=== PATIENT | male | born 1935 | race Caucasian/White ===

== ENCOUNTER 2020-05-05 10:42 | Outpatient (RCR) | payer MEDICARE, OTHER, SELFPAY | END 2020-05-05 23:59 | LOC: IMMUN 10:42 | PROVIDERS: PCP Internal Medicine; Referring Provider Family Medicine; Visit Provider Family Medicine | DX: Z23 Encounter for immunization (principal) | CPT/HCPCS: 0011A; 0012A ==

== ENCOUNTER → 2021-10-29 | Outpatient (CLI) | payer MEDICARE, OTHER, SELFPAY ==
[2021-10-29 14:02] LABS: ALB/GLOB Ratio 0.8 RATIO (0.9-2.4); AST(SGOT) 18 U/L (15-37); Alanine Aminotransfer ALT/SGPT 26 U/L (16-61); Albumin, Serum 3.4 g/dL (3.2-5.0); Alkaline Phosphatase 65 U/L (45-117); Anion Gap 6 (5-15); BUN 22 mg/dL (7-18); BUN/Creat Ratio 22.1 RATIO (10-20); Calcium,Total 9.2 mg/dL (8.5-10.1); Chloride 101 mmol/L (98-107); Creatinine, Serum 0.99 mg/dL (0.70-1.30); EST Glomerular Filtration Rate 76 mL/min (>60); Est Glom Filt Rate - Afr Amer 92 mL/min (>60); Glucose 153 mg/dL (74-106); Potassium 4.4 mmol/L (3.5-5.1); Protein, Total 7.4 g/dL (6.4-8.2); Sodium Level 136 mmol/L (136-145)
[2021-10-29 14:20] LABS: Erythrocyte Sedimentation Rate 17 mm/hr (0-20)
[2021-10-29 14:22] LABS: Absolute Lymphocyte Count 1.78 X10^3/uL (0.83-4.51); Absolute Neutrophil Count 7.3 X10^3/uL (2.0-7.7); Basophil# 0.06 X10^3/uL; Basophil% 0.6 % (0-1); Eosinophil# 0.35 X10^3/uL; Eosinophils% 3.4 % (0-5); Hematocrit 40.3 % (40-54); Hemoglobin 13.7 g/dL (13.0-16.5); Lymphocyte # 1.78 X10^3/ul (0.83-4.51); Lymphocyte % 17.1 % (19-41); Mean Corpuscular Hgb 31.4 pg (27.0-32.0); Mean Corpuscular Volume 92.4 fL (80-94); Monocyte# 0.91 X10^3/uL; Monocyte% 8.8 % (0-10); NRBC Flagged by Analyzer 0 % (0-5); Neutrophil # 7.26 X10^3/uL (2.7-7.7); Neutrophil % 69.7 % (47-70); Platelet Count 213 K/mm3 (150-450); RBC Distribution Width CV 13.3 % (11.6-14.6); RBC Distribution Width SD 45.4 fl (35.1-43.9); Red Blood Count 4.36 M/mm3 (4.6-6.2); White Blood Count 10.4 K/mm3 (4.4-11.0)
[2021-10-29 19:33] LABS: M R Staph aureus DNA By PCR Negative (Negative); Probe Check PASS; Specimen Processing Control PASS; Staph aureus DNA By PCR POSITIVE (Negative)
== END | disposition home or self-care (01) ==
PROVIDERS: PCP Internal Medicine; Referring Provider Podiatrist; Visit Provider Podiatrist
DX: L03.90 Cellulitis, unspecified (principal)
CPT/HCPCS: 36415; 80053; 85025; 85652; 86140; 87070; 87077; 87186; 87205; 87640

== ENCOUNTER 2023-06-07 17:32 | Inpatient (IN) | payer MEDICARE, OTHER, SELFPAY ==
[2023-06-07 17:33] VITALS: BP 157/91; PULSE 87; RESP 16; TEMP 36.6; O2SAT 99; BMI 30.1
--- NOTE | 2023-06-07 17:49 | EX.ED.DYSGE1 ---
HPI <LORRIE Marie - Last Filed: 06/07/23 19:02> History of Present Illness Chief Complaint: Wound Check Narrative Narrative: Patient was using a metal wire brush to clean test and impedance in his garage and was wearing socks and states a metal wire stuck to the bottom of his foot. This occurred on 06/04/2023. He had a friend remove the wire. Last night he developed redness and swelling of the foot that has persisted today. He states it is not worsening and it is not painful. No fever or chills. He is type II diabetic and did not check his sugars today. <Dr. Mo Gamboa MD - Last Filed: 06/07/23 23:22> History of Present Illness Detail of Chief Complaint: Right foot infection PFSH <LORRIE Marie - Last Filed: 06/07/23 19:02> [facility] Home Medications aspirin 81 mg tablet,delayed release (Adult Aspirin Regimen) 81 mg PO DAILY 06/07/23 [History Last Taken 06/07/23] clopidogrel 75 mg tablet 75 mg PO DAILY 06/07/23 [History Last Taken 06/07/23] latanoprost 0.005 % eye drops 1 drp ophthalmic (eye) QHS 06/07/23 [History Last Taken 06/06/23] lisinopril 10 mg tablet 10 mg PO DAILY 06/07/23 [History Last Taken 06/07/23] metformin 1,000 mg tablet 1,000 mg PO BID 06/07/23 [History Last Taken 06/07/23] metoprolol succinate 50 mg tablet,extended release 24 hr 50 mg PO DAILY 06/07/23 [History Last Taken 06/06/23] rosuvastatin 20 mg tablet 20 mg PO DAILY 06/07/23 [History Last Taken 06/06/23] Allergy/AdvReac Type Severity Reaction Status Date / Time metronidazole [From Flagyl] Allergy Rash Verified 06/07/23 18:46 Social History Smoking Status: Never smoker ROS <LORRIE Marie - Last Filed: 06/07/23 19:02> ROS ED ROS Narrative Constitutional: Negative for fever, chills. Neuro: Negative for motor/sensory dysfunction. Skin: Positive for wound. Musc: Negative for joint pain. EXAM <LORRIE Marie - Last Filed: 06/07/23 19:02> Physical Exam Narrative Exam Narrative: CONST: Patient sitting in no acute distress. EYES: Normal inspection. NECK: Normal inspection. RESP: No respiratory distress, CTAB. CVS: Regular rate and rhythm, no murmur, no gallop. SKIN: Color normal, no rash, warm, dry, intact. EXTREMITIES: On the plantar surface of first metatarsal area where the foreign body was previously there is a pinpoint and surrounding callus with small amount of pus expressed with palpation. The medial aspect of the dorsal foot has edema and erythema extending up just past the ankle. No lymphangitic streaking. Full ROM of the ankle and foot, nontender, no crepitus or fluctuance, 2+ DP pulses NEURO: Oriented x4. PSYCH: Normal affect. Const Vital Signs: 06/07/23 17:33 06/07/23 18:10 Temperature 97.8 F Temperature Source Temporal Pulse Rate 87 98 Respiratory Rate 16 18 Blood Pressure 157/91 H 116/96 H Blood Pressure Mean 113 102 Pulse Ox 99 96 Oxygen Delivery Method Room Air <Dr. Mo Gamboa MD - Last Filed: 06/07/23 23:22> Physical Exam Const Vital Signs: 06/07/23 17:33 06/07/23 18:10 Temperature 97.8 F Temperature Source Temporal Pulse Rate 87 98 Respiratory Rate 16 18 Blood Pressure 157/91 H 116/96 H Blood Pressure Mean 113 102 Pulse Ox 99 96 Oxygen Delivery Method Room Air MDM <LORRIE Marie - Last Filed: 06/07/23 19:02> [facility] Narrative Medical decision making narrative: Differential: Cellulitis, abscess, foreign body Patient was using a metal brush 3 days ago stepped on a piece of wire that he removed. He developed redness and swelling right foot last night. He has evidence of cellulitis and a small abscess for the foreign body had entered his skin. Wound culture sent. Extremity is neurovascularly intact. X-ray shows 2 metallic foreign bodies in the plantar foot between the 1st and 2nd digit and 4th and 5th digits. The acute entrance wound from recent injury is between the 1st and 2nd metatarsal heads. Patient reports he has a remote foreign body in his foot which explains the foreign body between the fourth/fifth digits. The attending successfully remove the wire between the 1st/2nd digits. Labs show normal white count of 9.6, glucose 174. Patient was treated with IV vancomycin and Zosyn. Case was discussed with Dr. Polanco, podiatry, who will be on consult as needed. Case will be discussed with the hospitalist for admission. Consults: Podiatry, hospitalist I have personally performed a face to face assessment of the patient and have reviewed the ELINOR Note. I performed a substantive portion of the visit including all aspects of the following. My moore findings include: History is remarkable for infection with drainage from the plantar surface of the right foot. He was using a metal brush 3 days ago. He believes he stepped on a piece of wire that he removed. He presents now because of redness, swelling and thick whitish-brown drainage. He denies fever or chills. Eyes atraumatic fever, heart murmur mitral valve prolapse. He is not on an anticoagulant. He denies nausea or vomiting. He denies pain in his foot. He states he does have diabetic neuropathy. He denies red streak from his foot to his knee. He denies groin or posterior knee pain. Exam is remarkable for a foot infection. Patient has a small puncture wound with purulent material that was expressed from the wound. Will obtain wound culture. There is edema to the foot. There is erythema and warmth. There is no lymphangitis. There is no popliteal or inguinal lymphadenopathy. Heart is regular. Rate is normal. There is no murmur, gallop or rub. Lungs are clear to auscultation. Medical Decision Making patient has a diabetic foot infection. Will obtain x-ray to assess for foreign body. Call was placed Dr. Polanco who is taking a patient to the OR. He is in the OR. Plan at this point is to remove the foreign body where the purulent drainage is. Since there is no wound associated with the second foreign body that is in the proximity of the first metatarsal head suspect this may not be the culprit causing the infection and may be a chronic retained foreign body. Antibiotics were started for diabetic foot infection per the sepsis treatment order set. Other additions or changes: [None] Lab Data Labs: Laboratory Results - last 24 hr 06/07/23 06/07/23 17:42 18:00 WBC 9.6 RBC 4.24 L Hgb 13.0 Hct 38.7 L MCV 91.3 MCH 30.7 MCHC 33.6 RDW Std Deviation 46.3 H RDW Coeff of Gm 13.7 Plt Count 175 MPV 9.9 Immature Gran % (Auto) 0.300 Neut % (Auto) 58.3 Lymph % (Auto) 26.3 [place] % (Auto) 9.1 Eos % (Auto) 5.4 H Baso % (Auto) 0.6 Absolute Neuts (auto) 5.6 Absolute Lymphs (auto) 2.53 Nucleated RBC % 0 Sodium 138 Potassium 3.8 Chloride 105 Carbon Dioxide 27.0 Anion Gap 6 BUN 20 H Creatinine 0.88 Estim Creat Clear Calc 61.46 Est GFR (MDRD) Af Amer 105 Est GFR (MDRD) Non-Af 87 BUN/Creatinine Ratio 22.7 H Glucose 174 H Hemoglobin A1c 7.6 H Calcium 8.9 POC Glucose 173 H Radiography Diagnostic Testing: Clinical Impression(s) from Imaging Studies Foot X-Ray 06/07/23 17:50 IMPRESSION: 1. There are at least 2 curvilinear metallic foreign bodies in the plantar aspect of the foot localized to the interspace between the fourth and fifth digits as well as at the plantar aspect near the first and second metatarsal heads. 2. Mild diffuse soft tissue swelling. 3. Degenerative changes. Electronically Signed: Anand Marquis DO at 18:11 EDT , <Dr. Mo Gamboa MD - Last Filed: 06/07/23 23:22> [facility] Narrative Medical decision making narrative: Differential: Cellulitis, abscess, foreign body Patient was using a metal brush 3 days ago stepped on a piece of wire that he removed. He developed redness and swelling right foot last night. He has evidence of cellulitis and a small abscess for the foreign body had entered his skin. Wound culture sent. Extremity is neurovascularly intact. X-ray shows 2 metallic foreign bodies in the plantar foot between the 1st and 2nd digit and 4th and 5th digits. The acute entrance wound from recent injury is between the 1st and 2nd metatarsal heads. Patient reports he has a remote foreign body in his foot which explains the foreign body between the fourth/fifth digits. The attending successfully remove the wire between the 1st/2nd digits. Labs show normal white count of 9.6, glucose 174. Patient was treated with IV vancomycin and Zosyn. Case was discussed with Dr. Polanco, podiatry, who will be on consult as needed. Case will be discussed with the hospitalist for admission. Consults: Podiatry, hospitalist I have personally performed a face to face assessment of the patient and have reviewed the ELINOR Note. I performed a substantive portion of the visit including all aspects of the following. My moore findings include: History is remarkable for infection with drainage from the plantar surface of the right foot. He was using a metal brush 3 days ago. He believes he stepped on a piece of wire that he removed. He presents now because of redness, swelling and thick whitish-brown drainage. He denies fever or chills. Eyes atraumatic fever, heart murmur mitral valve prolapse. He is not on an anticoagulant. He denies nausea or vomiting. He denies pain in his foot. He states he does have diabetic neuropathy. He denies red streak from his foot to his knee. He denies groin or posterior knee pain. Exam is remarkable for a foot infection. Patient has a small puncture wound with purulent material that was expressed from the wound. Will obtain wound culture. There is edema to the foot. There is erythema and warmth. There is no lymphangitis. There is no popliteal or inguinal lymphadenopathy. Heart is regular. Rate is normal. There is no murmur, gallop or rub. Lungs are clear to auscultation. Medical Decision Making patient has a diabetic foot infection. Will obtain x-ray to assess for foreign body. Call was placed Dr. Polanco who is taking a patient to the OR. He is in the OR. Plan at this point is to remove the foreign body where the purulent drainage is. Since there is no wound associated with the second foreign body that is in the proximity of the first metatarsal head suspect this may not be the culprit causing the infection and may be a chronic retained foreign body. Antibiotics were started for diabetic foot infection per the sepsis treatment order set. Other additions or changes: Dr. Polanco was informed at 2315 that the foreign body was removed. He states he will see patient at this time. Lab Data Attestation: I reviewed the patient's lab results. Lab results narrative: White count is 9.6 with no shift. Glucose is elevated 173. Labs: Laboratory Results - last 24 hr 06/07/23 06/07/23 17:42 18:00 WBC 9.6 RBC 4.24 L Hgb 13.0 Hct 38.7 L MCV 91.3 MCH 30.7 MCHC 33.6 RDW Std Deviation 46.3 H RDW Coeff of Gm 13.7 Plt Count 175 MPV 9.9 Immature Gran % (Auto) 0.300 Neut % (Auto) 58.3 Lymph % (Auto) 26.3 [place] % (Auto) 9.1 Eos % (Auto) 5.4 H Baso % (Auto) 0.6 Absolute Neuts (auto) 5.6 Absolute Lymphs (auto) 2.53 Nucleated RBC % 0 Sodium 138 Potassium 3.8 Chloride 105 Carbon Dioxide 27.0 Anion Gap 6 BUN 20 H Creatinine 0.88 Estim Creat Clear Calc 61.46 Est GFR (MDRD) Af Amer 105 Est GFR (MDRD) Non-Af 87 BUN/Creatinine Ratio 22.7 H Glucose 174 H Hemoglobin A1c 7.6 H Calcium 8.9 POC Glucose 173 H Radiography Chest X-Ray - ED: Read by ED Physician (Three-view x-ray of the foot reveals 2 metallic foreign body. 1 is by the head of the first metatarsal the second 1 is in the region of the head of the third metatarsal. Suspect this is the wound associated with purulent drainage.) Diagnostic Testing: Clinical Impression(s) from Imaging Studies Foot X-Ray 06/07/23 17:50 IMPRESSION: 1. There are at least 2 curvilinear metallic foreign bodies in the plantar aspect of the foot localized to the interspace between the fourth and fifth digits as well as at the plantar aspect near the first and second metatarsal heads. 2. Mild diffuse soft tissue swelling. 3. Degenerative changes. Electronically Signed: Anand Marquis DO at 18:11 EDT , Procedures <Dr. Mo Gamboa MD - Last Filed: 06/07/23 23:22> Other Procedures Procedure(s): Removal of embedded foreign body: Patient was anesthetized by posterior tibial nerve block using 1% lidocaine. Total of 4 cc was used. Area was tested. He states he had no sensation. Incision was made near the area of purulent drainage. Blunt dissection was undertaken. The foreign body was visualized and removed in total. Prior to attempting removal Case was discussed with Dr. Polanco who is on-call for podiatry. Discharge Plan Dx/Rx/DC Orders Clinical Impression: Cellulitis of foot, right, History of diabetes mellitus, type II, Acute foreign body of right foot Disposition Disposition: Acute Care Hospital [facility] Discharge Date/Time: 06/07/23 19:11
--- NOTE | 2023-06-07 17:50 | RAD_ITS ---
EXAM: XR RIGHT FOOT COMPLETE, 3 OR MORE VIEWS CLINICAL INDICATION: rule out foreign body, pain TECHNIQUE: Frontal, lateral and oblique views of the right foot. COMPARISON: No relevant prior studies available. FINDINGS: BONES/JOINTS: Hallux valgus. 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 Diffuse interphalangeal joint arthrosis. Diffuse midfoot and hindfoot/ankle arthrosis. Calcaneal spurs. No acute fracture. No sclerotic or destructive changes observed. SOFT TISSUES: There are at least 2 curvilinear metallic foreign bodies in the plantar aspect of the foot localized to the interspace between the fourth and fifth digits as well as at the plantar aspect near the first and second metatarsal heads. Mild diffuse soft tissue swelling. RAD/Foot min 3 Views IMPRESSION: 1. There are at least 2 curvilinear metallic foreign bodies in the plantar aspect of the foot localized to the interspace between the fourth and fifth digits as well as at the plantar aspect near the first and second metatarsal heads. 2. Mild diffuse soft tissue swelling. 3. Degenerative changes. Electronically Signed: Anand Marquis DO at 18:11 EDT ,
[2023-06-07 18:02] LABS: Bedside Glucose 173 mg/dL (74-106)
[2023-06-07] MEDS: Lidocaine 1% (20 ml mdv) 20 ML Vial INFILT (18:02)
[2023-06-07 18:10] VITALS: BP 116/96; PULSE 98; RESP 18; O2SAT 96
[2023-06-07 18:15] LABS: Absolute Lymphocyte Count 2.53 X10^3/uL (0.83-4.51); Absolute Neutrophil Count 5.6 X10^3/uL (2.0-7.7); Basophil# 0.06 X10^3/uL; Basophil% 0.6 % (0-1); Eosinophil# 0.52 X10^3/uL; Eosinophils% 5.4 % (0-5); Hematocrit 38.7 % (40-54); Lymphocyte # 2.53 X10^3/ul (0.83-4.51); Lymphocyte % 26.3 % (19-41); Mean Corp Hgb Conc 33.6 g/dL (32-36); Mean Corpuscular Hgb 30.7 pg (27.0-32.0); Mean Corpuscular Volume 91.3 fL (80-94); Mean Platelet Vol. 9.9 fl (6.2-12.0); Monocyte# 0.88 X10^3/uL; Monocyte% 9.1 % (0-10); NRBC Flagged by Analyzer 0 % (0-5); Neutrophil % 58.3 % (47-70); Platelet Count 175 K/mm3 (150-450); RBC Distribution Width CV 13.7 % (11.6-14.6); RBC Distribution Width SD 46.3 fl (35.1-43.9); Red Blood Count 4.24 M/mm3 (4.6-6.2); White Blood Count 9.6 K/mm3 (4.4-11.0)
[2023-06-07 18:27] LABS: Anion Gap 6 (5-15); BUN 20 mg/dL (7-18); BUN/Creat Ratio 22.7 RATIO (10-20); Calcium,Total 8.9 mg/dL (8.5-10.1); Chloride 105 mmol/L (98-107); Creatinine, Serum 0.88 mg/dL (0.70-1.30); EST Glomerular Filtration Rate 87 mL/min (>60); Est Glom Filt Rate - Afr Amer 105 mL/min (>60); Estimated Creatinine Clearance 61.46 ml/min; Glucose 174 mg/dL (74-106); Potassium 3.8 mmol/L (3.5-5.1); Sodium Level 138 mmol/L (136-145)
[2023-06-07] MEDS: Piperacil/Tazobactam 4.5 GM in 0.9% Normal Saline (100mL MB+) 100 ML IV (18:38)
--- NOTE | 2023-06-07 18:43 | HP.PCM.HOS_ITS ---
[facility] - General General Date of Admission: 06/07/23 Date of Service: 06/07/23 Chief Complaint: Right leg cellulitis following foreign body injury HPI Stephanie BA, is a 88 M with past medical history of type 2 diabetes, coronary artery disease who presents to the ED for concerns of a metal wire stuck to his right foot since 06/04/2023. His friend had removed the wire, but since last night he has developed redness and swelling of the foot. There is minimal pain and he is able to move his ankle well. He has a history of coronary artery disease s/p PCI in 2001 and is on DAPT for the same, type 2 diabetes on metformin In the ED and x-ray showed 2 metallic foreign bodies in the plantar foot between the first and second digits, and fourth and fifth digits. The foreign body between the first and second metatarsal heads is the recent foreign body and it was removed in the ED. There is also an older foreign body lodged between the fourth and fifth digits. Podiatry was consulted in the ED, they will evaluate the patient tomorrow. COUNTS INCLUDE 234 BEDS AT THE [facility] Home Medications aspirin 81 mg tablet,delayed release (Adult Aspirin Regimen) 81 mg PO DAILY 06/07/23 [History Last Taken 06/07/23] clopidogrel 75 mg tablet 75 mg PO DAILY 06/07/23 [History Last Taken 06/07/23] latanoprost 0.005 % eye drops 1 drp ophthalmic (eye) QHS 06/07/23 [History Last Taken 06/06/23] lisinopril 10 mg tablet 10 mg PO DAILY 06/07/23 [History Last Taken 06/07/23] metformin 1,000 mg tablet 1,000 mg PO BID 06/07/23 [History Last Taken 06/07/23] metoprolol succinate 50 mg tablet,extended release 24 hr 50 mg PO DAILY 06/07/23 [History Last Taken 06/06/23] rosuvastatin 20 mg tablet 20 mg PO DAILY 06/07/23 [History Last Taken 06/06/23] Allergy/AdvReac Type Severity Reaction Status Date / Time metronidazole [From Flagyl] Allergy Rash Verified 06/07/23 18:46 Social History Smoking Status: Never smoker ROS Review of Systems ROS Unobtainable: Denies due to encephalopathy, due to endotracheal tube, due to mental condition, due to mental status or other Constitutional Constitutional: Denies anorexia, change in weight, chills, fatigue, fever(s), malaise, night sweats, weakness or other Eyes Eyes: Denies blurry vision, change in eye color, change in vision, discharge from eye(s), double vision, erythema, eye pain, loss of vision or other ENT HEENT: Reports abnormal hearing; Denies dysphagia, ear pain, epistaxis, headache(s), hearing loss, nasal congestion, nasal discharge, post nasal drip, sinus pressure, sore throat or other Cardiovascular Cardiovascular: Denies chest pain, claudication, dyspnea on exertion, edema, lightheadedness, orthopnea, palpitations, paroxysmal nocturnal dyspnea, rapid heart rate, syncope or other Respiratory/Chest Respiratory/Chest: Denies cough, dyspnea, excessive phlegm production, hemoptysis, productive cough, shortness of breath at rest, shortness of breath with exertion, wheezing or other Gastrointestinal Gastrointestinal: Denies abdominal pain, coffee ground emesis, constipation, diarrhea, dyspepsia, hematemesis, hematochezia, loose stools, melena, nausea, vomiting or other Genitourinary Genitourinary: Denies burning urination, difficulty urinating, dysuria, hematuria, nocturia, urinary frequency, urinary hesitancy, urinary incontinence, urinary urgency or other Musculoskeletal Musculoskeletal: Denies arthralgias, back pain, joint pain, joint stiffness, joint swelling, myalgias, neck pain or other Neurologic Neurologic: Denies abnormal gait, abnormal speech, confusion, disequilibrium, dizziness, focal weakness, headache(s), numbness, paresthesias, seizure-like activity, seizures, syncope, tingling, tremor(s) or other Vital Signs Vital Signs Vital Signs: 06/07/23 17:33 06/07/23 18:10 Temperature 97.8 F Temperature Source Temporal Pulse Rate 87 98 Respiratory Rate 16 18 Blood Pressure 157/91 H 116/96 H Blood Pressure Mean 113 102 Pulse Ox 99 96 Oxygen Delivery Method Room Air Weight Weight: 186 lb 8 oz Body Mass Index (BMI) 30.1 Physical Exam Neck No no lymphadenopathy, No supple, No no JVD and No no carotid bruits Resp No normal respiratory effort, No no retractions, No no use of accessory muscles and No clear to auscultation bilaterally Cardio Negative for regular rate, regular rhythm, S1 normal heart sound, S2 normal heart sound, no murmurs, no rub, no gallops, no clicks or no JVD GI Negative for normal to inspection, nondistended, normoactive bowel sounds, soft to palpation, non-tender, non-distended or hepatosplenomegaly Extremity Extremity Narrative: Right foot is swollen, erythematous. Mild oozing present at the prior entry wound. No tenderness over the wound, no foreign body could be felt on palpation. Able to move his ankles freely without any pain. Results Medical Records Data Attestation: I reviewed the patient's medical records Lab / Micro Data Attestation: I reviewed the patient's lab results. Lab results narrative: WBC is in normal range, BUN 20, glucose 174. 06/07/23 18:00 06/07/23 18:00 Labs: Laboratory Results - last 24 hr 06/07/23 17:42: POC Glucose 173 H 06/07/23 18:00: WBC 9.6, RBC 4.24 L, Hgb 13.0, Hct 38.7 L, MCV 91.3, MCH 30.7, MCHC 33.6, RDW Std Deviation 46.3 H, RDW Coeff of Gm 13.7, Plt Count 175, MPV 9.9, Immature Gran % (Auto) 0.300, Neut % (Auto) 58.3, Lymph % (Auto) 26.3, [place] % (Auto) 9.1, Eos % (Auto) 5.4 H, Baso % (Auto) 0.6, Absolute Neuts (auto) 5.6, Absolute Lymphs (auto) 2.53, Nucleated RBC % 0, Sodium 138, Potassium 3.8, Chloride 105, Carbon Dioxide 27.0, Anion Gap 6, BUN 20 H, Creatinine 0.88, Estim Creat Clear Calc 61.46, Est GFR (MDRD) Af Amer 105, Est GFR (MDRD) Non-Af 87, BUN/Creatinine Ratio 22.7 H, Glucose 174 H, Calcium 8.9 Imaging Radiology Impression Foot X-Ray 06/07/23 17:50 IMPRESSION: 1. There are at least 2 curvilinear metallic foreign bodies in the plantar aspect of the foot localized to the interspace between the fourth and fifth digits as well as at the plantar aspect near the first and second metatarsal heads. 2. Mild diffuse soft tissue swelling. 3. Degenerative changes. Electronically Signed: Anand Marquis DO at 18:11 EDT , Assessment & Plan Assessment/Plan (1) Acute foreign body of right foot: PLAN: Plan 88-year-old gentleman presents to the ED following acute foreign body related injury to his right foot followed by cellulitis. He has no other risk factors for worsening disease and his sugars are well-controlled. 1. Acute cellulitis of the right foot: -The foreign body was removed in the ED, podiatry consulted will see him tomorrow -Continue vancomycin plus Zosyn for today, if there is improvement can switch to oral antibiotics tomorrow -No pain at present, will use Tylenol if he is in pain overnight -LR IV 500 cc at the rate of 100 cc/h given the elevated BUN 2. Type 2 diabetes: -A1c levels -Insulin per sliding scale during hospitalization -Blood sugars in the ED were well-controlled 3. Coronary artery disease: -Continue DAPT therapy as on it previously -Consider following up with cardiology outpatient regarding the need for dual a ntiplatelet therapy given stent was 2 decades ago 4. Hypertension: -Continue lisinopril, metoprolol 5. Dyslipidemia: Continue rosuvastatin 6. DVT prophylaxis: Moderate risk given immobility -Enoxaparin prophylaxis ordered Charges/Coding Visit Charges Inpatient E&M: 41870 Init Hosp L2
[2023-06-07 18:49] VITALS: BP 116/78; PULSE 78; RESP 16; TEMP 36.4; O2SAT 99
[2023-06-07 19:22] VITALS: BMI 29.7
[2023-06-07 19:40] VITALS: BP 162/91; PULSE 65; RESP 18; TEMP 36.4; O2SAT 97
[2023-06-07] MEDS: 0.9% Saline Lock 10 ML Syringe IV (19:57)
[2023-06-07] MEDS: Vancomycin HCl 2,000 MG in 0.9% Normal Saline (500mL Bag) 500 ML 250 MG IV (19:57)
[2023-06-07] MEDS: 0.9% Normal Saline (250mL Bag) 250 ML 15 ML IV (19:57)
[2023-06-07 20:13] LABS: Hemoglobin A1c 7.6 % (3.8-5.6)
[2023-06-07] MEDS: Insulin Lispro 100 UNIT/ML INSULN.PEN SC (21:44)
[2023-06-07 21:45] VITALS: BP 162/91; PULSE 65
[2023-06-07] MEDS: Atorvastatin Calcium 40 MG Tablet PO (21:45)
[2023-06-07] MEDS: Metoprolol(XL)Succ 50 MG Tablet PO (21:45)
[2023-06-07] MEDS: Latanoprost 0.005% 1 Bottle 1 DRP OPHTHALMIC (21:45)
[2023-06-07 22:22] LABS: Bedside Glucose 228 mg/dL (74-106)
--- NOTE | 2023-06-08 00:06 | CON.PCM_ITS ---
Assessment & Plan Assessment/Plan (1) Acute foreign body of right foot: (2) Cellulitis of foot, right: (3) History of diabetes mellitus, type II: PLAN: Plan Patient seen and evaluated There is a small puncture wound at site of previous foreign body to the plantar aspect of the right foot just proximal to the first metatarsal head and sesamoid complex. There is erythema about the wound and medial foot extending proximally towards the ankle. However erythema has improved based on markings since starting IV antibiotics. He did undergo removal of foreign body in the ED followed by copious irrigation. Dry sterile dressings were applied to the foot. WBC currently 9.6. Currently on IV Vanco/Zosyn. There has been improvement in his cellulitis tonight. Likely to switch to oral antibiotic tomorrow afternoon. A1c 7.6% on 06/07/2023 Discussed with patient the importance of wearing shoe gear at all times. Discussed he should not walk barefoot, this includes socks. Stated that shoe gear should be worn at all times for reasons such as this and given his diabetic status infections can get worse and may lead to amputation. He voices understanding of this however will likely continue to ambulate barefoot. Medicine currently following for medical management No podiatric surgical intervention is anticipated at this time Podiatry will see again on Friday. He states he sees Dr. Abdul for his care. He may continue to follow-up with Dr. Abdul in office once discharged. Would recommend continued oral antibiotic in the outpatient setting following discharge. Jr. Kareem Grubbs.P.M. [facility] [phone] HPI Consult Data Date of Consult: 06/08/23 HPI Narrative Reason for Consultation: Cellulitis with foreign body right foot HPI Narrative: VALERIANO BA is a 88 M who presents to the ED for complaint of cellulitis of the right lower extremity. He has PMHx of diabetes type 2 with peripheral polyneuropathy and CAD. Patient states that he was using his power tools in his garage on 06/04/2023 while barefoot and thus had a metal wire that he stepped on. He states that he had a friend remove the wire but a piece must of been left behind because he did develop increasing redness about his foot that moved up the leg along with accompanying swelling. Patient states that he does not wear shoes often and goes barefoot quite frequently including for walks outside to the mailbox. Patient denies N/V/F/chills. Patient denies further complaints. Patient did undergo removal of the foreign body while in the ED by Dr. Gamboa. Patient was consulted to podiatry for continued monitoring of his cellulitis. [facility] Home Medications aspirin 81 mg tablet,delayed release (Adult Aspirin Regimen) 81 mg PO DAILY 0 06/07/23 [History Last Taken 06/07/23] clopidogrel 75 mg tablet 75 mg PO DAILY 06/07/23 [History Last Taken 06/07/23] latanoprost 0.005 % eye drops 1 drp ophthalmic (eye) QHS 06/07/23 [History Last Taken 06/06/23] lisinopril 10 mg tablet 10 mg PO DAILY 06/07/23 [History Last Taken 06/07/23] metformin 1,000 mg tablet 1,000 mg PO BID 06/07/23 [History Last Taken 06/07/23] metoprolol succinate 50 mg tablet,extended release 24 hr 50 mg PO DAILY 06/07/23 [History Last Taken 06/06/23] rosuvastatin 20 mg tablet 20 mg PO DAILY 06/07/23 [History Last Taken 06/06/23] Allergy/AdvReac Type Severity Reaction Status Date / Time metronidazole [From Flagyl] Allergy Rash Verified 06/07/23 18:46 Social History Smoking Status: Never smoker ROS Constitutional Constitutional: Denies anorexia, chills or fever(s) Eyes Eyes: Denies blurry vision, change in vision or diplopia ENT HEENT: Denies dysphagia, nasal discharge, nasal obstruction or sore throat Cardiovascular Cardiovascular: Denies chest pain, claudication or palpitations Respiratory/Chest Respiratory/Chest: Denies cough, dyspnea or shortness of breath at rest Gastrointestinal Gastrointestinal: Denies abdominal pain, constipation, diarrhea, nausea or vomiting Genitourinary Genitourinary: Denies dysuria, hematuria, urinary frequency or urinary urgency Musculoskeletal Musculoskeletal: Denies joint pain, joint stiffness or joint swelling Integumentary Integumentary: Denies jaundice, pruritus or rash Neurologic Neurologic: Denies dizziness, numbness or seizures Psychiatric Psychiatric: Denies anxiety or depression Endocrine Endocrinology: Denies cold intolerance or heat intolerance Hematologic/Lymphatic Hematologic/Lymphatic: Denies easy bleeding or easy bruising Allergic/Immunologic Allergic/Immunologic: Denies wheezing Physical Exam Const alert, oriented x3 and no apparent distress General Appearance: cooperative HEENT normocephalic Eyes General Eye: normal appearance of both eyes Neck General: normal visual inspection Lymph Lymphatic: no lymphadenopathy noted and no lymphedema noted Resp normal respiratory effort Cardio regular rate and regular rhythm Extremity Extremity Narrative: Right lower extremity: Vascular: DP and PT pulses palpable with adequate capillary fill time to the digits. Normal temperature gradient. Neurologic: There is diminished protective sensation to bilateral foot secondary to diabetic peripheral polyneuropathy. Dermatological: There is a small puncture wound noted plantar to the first metatarsal head and just proximal to the sesamoid complex. There is localized erythema about the wound that spreads medially up the foot towards the ankle. Erythema is improving based on previous markings since starting IV antibiotics earlier this evening. He did have scant amount of purulence at the time of foreign body removal in the ED. Skin does appear well-hydrated with normal turgor. Musculoskeletal: Muscle strength 5 of 5 age-appropriate. There is decreased range of motion of the ankle joint, subtalar joint, midtarsal joint, and first metatarsophalangeal joint without pain or crepitus. Neuro oriented x3 and moves all extremities Lab / Micro Data 06/07/23 18:00 06/07/23 18:00 Labs: Laboratory Results - last 24 hr 06/07/23 17:42: POC Glucose 173 H 06/07/23 18:00: WBC 9.6, RBC 4.24 L, Hgb 13.0, Hct 38.7 L, MCV 91.3, MCH 30.7, MCHC 33.6, RDW Std Deviation 46.3 H, RDW Coeff of Gm 13.7, Plt Count 175, MPV 9.9, Immature Gran % (Auto) 0.300, Neut % (Auto) 58.3, Lymph % (Auto) 26.3, [place] % (Auto) 9.1, Eos % (Auto) 5.4 H, Baso % (Auto) 0.6, Absolute Neuts (auto) 5.6, Absolute Lymphs (auto) 2.53, Nucleated RBC % 0, Sodium 138, Potassium 3.8, Chloride 105, Carbon Dioxide 27.0, Anion Gap 6, BUN 20 H, Creatinine 0.88, Estim Creat Clear Calc 61.46, Est GFR (MDRD) Af Amer 105, Est GFR (MDRD) Non-Af 87, BUN/Creatinine Ratio 22.7 H, Glucose 174 H, Hemoglobin A1c 7.6 H, Calcium 8.9 06/07/23 21:41: POC Glucose 228 H Imaging Radiology Impression Foot X-Ray 06/07/23 17:50 IMPRESSION: 1. There are at least 2 curvilinear metallic foreign bodies in the plantar aspect of the foot localized to the interspace between the fourth and fifth digits as well as at the plantar aspect near the first and second metatarsal heads. 2. Mild diffuse soft tissue swelling. 3. Degenerative changes. Electronically Signed: Anand Marquis DO at 18:11 EDT ,
[2023-06-08 02:00] VITALS: BP 121/64; PULSE 59; RESP 16; TEMP 36.6; O2SAT 95
[2023-06-08 03:51] LABS: Bedside Glucose 144 mg/dL (74-106)
[2023-06-08] MEDS: Insulin Lispro 100 UNIT/ML INSULN.PEN SC ×2 (06:09→11:31)
[2023-06-08 06:37] LABS: Absolute Lymphocyte Count 1.58 X10^3/uL (0.83-4.51); Absolute Neutrophil Count 4.6 X10^3/uL (2.0-7.7); Basophil# 0.07 X10^3/uL; Basophil% 0.9 % (0-1); Eosinophil# 0.45 X10^3/uL; Hemoglobin 12.3 g/dL (13.0-16.5); Lymphocyte # 1.58 X10^3/ul (0.83-4.51); Lymphocyte % 21.2 % (19-41); Mean Corp Hgb Conc 33.2 g/dL (32-36); Mean Corpuscular Hgb 30.4 pg (27.0-32.0); Mean Corpuscular Volume 91.6 fL (80-94); Mean Platelet Vol. 9.8 fl (6.2-12.0); Monocyte# 0.74 X10^3/uL; Monocyte% 9.9 % (0-10); NRBC Flagged by Analyzer 0 % (0-5); Neutrophil # 4.59 X10^3/uL (2.7-7.7); Neutrophil % 61.7 % (47-70); Platelet Count 178 K/mm3 (150-450); RBC Distribution Width CV 13.5 % (11.6-14.6); RBC Distribution Width SD 45.8 fl (35.1-43.9); Red Blood Count 4.04 M/mm3 (4.6-6.2); White Blood Count 7.5 K/mm3 (4.4-11.0)
[2023-06-08 06:41] LABS: Bedside Glucose 153 mg/dL (74-106)
[2023-06-08 06:59] LABS: International Normalized Ratio 1.1; Prothrombin Time (Protime)PT. 13.9 SECONDS (11.7-14.9)
[2023-06-08 07:15] LABS: ALB/GLOB Ratio 0.8 RATIO (0.9-2.4); AST(SGOT) 23 U/L (15-37); Alanine Aminotransfer ALT/SGPT 23 U/L (16-61); Albumin, Serum 2.8 g/dL (3.2-5.0); Alkaline Phosphatase 55 U/L (45-117); Anion Gap 5 (5-15); BUN 15 mg/dL (7-18); BUN/Creat Ratio 19.6 RATIO (10-20); Bilirubin, Direct 0.23 mg/dL (0.00-0.30); Calcium,Total 8.6 mg/dL (8.5-10.1); Chloride 106 mmol/L (98-107); Creatinine, Serum 0.76 mg/dL (0.70-1.30); EST Glomerular Filtration Rate 103 mL/min (>60); Est Glom Filt Rate - Afr Amer 124 mL/min (>60); Globulin 3.4 g/dL (2.2-4.2); Glucose 160 mg/dL (74-106); Magnesium 1.7 mg/dL (1.6-2.6); Phosphorus 2.7 mg/dL (2.5-4.9); Potassium 3.7 mmol/L (3.5-5.1); Protein, Total 6.2 g/dL (6.4-8.2); Sodium Level 139 mmol/L (136-145); Thyroid Stim Hormone (TSH) 2.73 uIU/mL (0.358-3.74)
[2023-06-08 07:55] VITALS: BP 168/90; PULSE 61; RESP 16; TEMP 36.4; O2SAT 94
[2023-06-08] MEDS: Lisinopril 10 MG Tablet PO (07:56)
[2023-06-08] MEDS: Enoxaparin 40 MG/0.4 ML Syringe SC (07:56)
[2023-06-08] MEDS: Clopidogrel Bisulfate 75 MG Tablet PO (07:57)
[2023-06-08] MEDS: Aspirin E.C. 81 MG Tablet PO (07:57)
[2023-06-08] MEDS: Ceftriaxone 2 GM in 0.9% Normal Saline (50mL MB+) 50 ML IV (09:54)
[2023-06-08 11:49] LABS: Bedside Glucose 303 mg/dL (74-106)
--- NOTE | 2023-06-08 13:51 | DCINST_ITS ---
Discharge Instructions Diet Discharge Diet: - (Resume previous diet) Activity Discharge Activity: Return to Normal Activity Weight Bearing Status: Full weight bearing (Wear shoes) Follow Up Care Test Results: Test results from this visit will be discussed in further detail at your follow- up appointment, if applicable. Discharge Plan Admission Admit Date/Time: 06/07/23 18:33 Primary Reason for Your Visit: Cellulitis right foot Attending Provider: Todd Westfall Primary Care Provider: Bebe Gandhi Consulting Providers: Jacinta Adam Instructions Additional Instructions / Restrictions: Leave your dressing on until you see podiatry, if your dressing gets wet, you may clean your foot with soap and water and apply a clean dressing Discharge Orders/Prescriptions Prescriptions: New doxycycline hyclate 100 mg tablet 100 mg PO BID Qty: 14 0RF Rx Instructions: start tonite, take with food-no milk at same time Continued latanoprost 0.005 % drops 1 drp ophthalmic (eye) QHS metoprolol succinate 50 mg tablet extended release 24 hr 50 mg PO DAILY clopidogrel 75 mg tablet 75 mg PO DAILY metformin 1,000 mg tablet 1,000 mg PO BID lisinopril 10 mg tablet 10 mg PO DAILY rosuvastatin 20 mg tablet 20 mg PO DAILY aspirin [Adult Aspirin Regimen] 81 mg tablet,delayed release (DR/EC) 81 mg PO DAILY Referrals / Follow Up: Basilio Abdul DPM [Med Staff - Active Staff] - See Referral Note (This Friday or Friday, call tomorrow for an appointment) Bebe Gandhi MD [Primary Care Provider] - Disposition Disposition (needs filled in before D/C Order can be placed): Home, Self Care
--- NOTE | 2023-06-08 13:54 | DS.PCM_ITS ---
Providers Date of Admission: 06/07/23 Date of Discharge: 06/08/23 Primary Care Physician: Dr. Bebe Gandhi MD Consultations 06/07/23 19:25 Consult: Onc/Wound/car rental agency manager Routine Comment: Reason For Visit: CELLULITIS Diagnosis Discharge Diagnosis (1) Acute foreign body of right foot: Status: Acute Code(s): S90.851A - Superficial foreign body, right foot, initial encounter (2) Cellulitis of foot, right: Status: Acute Code(s): L03.115 - Cellulitis of right lower limb (3) History of diabetes mellitus, type II: Status: Acute Code(s): Z86.39 - Personal history of other endocrine, nutritional and metabolic disease Plan 1. Cellulitis of the right foot due to foreign body #2 acute foreign body of the right foot #3 type 2 diabetes Medications at Discharge Home Medications aspirin 81 mg tablet,delayed release (Adult Aspirin Regimen) 81 mg PO DAILY 06/07/23 clopidogrel 75 mg tablet 75 mg PO DAILY 06/07/23 latanoprost 0.005 % eye drops 1 drp ophthalmic (eye) QHS 06/07/23 lisinopril 10 mg tablet 10 mg PO DAILY 06/07/23 metformin 1,000 mg tablet 1,000 mg PO BID 06/07/23 metoprolol succinate 50 mg tablet,extended release 24 hr 50 mg PO DAILY 06/07/23 rosuvastatin 20 mg tablet 20 mg PO DAILY 06/07/23 doxycycline hyclate 100 mg tablet 100 mg PO BID #14 tabs 06/08/23 Hospital Course Operations None Procedures None Summary of Care Provided Minutes Spent on Discharge: 31 Hospital Course: This 88-year-old white male was seen in the emergency room at [facility] with complaints of a foreign body on the bottom of his right foot. Katerine powell was using a metal wire brush to clean in his garage and was wearing socks and stated that a metal wire stuck to the bottom of his right foot. This occurred on 06/04/2023, he stated he had a friend remove the wire, he complained that the night prior he developed redness and swelling of the right foot which had persisted the day he was seen in the emergency room, he denied any fevers or chills. X-ray of the right foot was performed, it showed 2 metallic foreign bodies in the plantar foot between the first and second digit and the fourth and fifth digit. The foreign body between the fourth and fifth digit have been chronic, there was noted to be an acute entrance wound between the first and second metatarsal heads. The emergency room physician was able to remove the wire between the first and second digits, labs showed a normal white blood cell count, patient was given IV vancomycin and Zosyn and podiatry was consulted and contacted by the emergency room. Patient was admitted to [place] [id number], podiatry did not feel he needed further surgery and felt that the right foot area was m inimally red and that the patient could be discharged to home on oral antibiotics. Culture results were positive for Staph aureus but it was unknown whether this was methicillin sensitive Staph aureus or methicillin resistant Staph aureus. On 06/08/2023, patient was seen and examined: On examination he appeared in good health and spirits. Vital signs as documented. Skin warm and dry and without o vert rashes, there is noted to be a puncture wound to the right plantar foot surface. Neck without JVD, neck was supple, trachea midline, thyroid was normal. Lungs clear bilaterally, normal air movement was noted. Heart exam notable for regular rhythm, normal sounds and absence of murmurs, rubs or gallops. Abdomen unremarkable and without evidence of organomegaly, masses, or abdominal aortic enlargement. Bowel sounds are present, abdomen is not distended. Extremities nonedematous, no cyanosis was noted, no clubbing was noted. There is noted to be some slight redness over the dorsum of the right foot between the first and second toes, there is no overt swelling noted, the area is not warm. There was noted to be a small wound on the plantar surface of the patient's right foot, this wound was nondraining. Neuro: Cranial nerves II through XII are grossly intact, no focal motor deficits were noted, sensation to light touch and pinprick intact, motor exam 5/5 throughout. Psych: Patient is alert and oriented x3, he does not appear anxious or depressed, he does not appear agitated. Patient was discharged home in stable condition, his daughter was in the room at the time of my examination before discharge. Weight / BMI Weight Weight: 83.5 kg Body Mass Index (BMI) 29.7 ABG / Lab / Microbiology Data 06/08/23 06:06 06/08/23 06:06 Laboratory: Laboratory Results - last 24 hr 06/07/23 17:42: POC Glucose 173 H 06/07/23 18:00: WBC 9.6, RBC 4.24 L, Hgb 13.0, Hct 38.7 L, MCV 91.3, MCH 30.7, MCHC 33.6, RDW Std Deviation 46.3 H, RDW Coeff of Gm 13.7, Plt Count 175, MPV 9.9, Immature Gran % (Auto) 0.300, Neut % (Auto) 58.3, Lymph % (Auto) 26.3, [place] % (Auto) 9.1, Eos % (Auto) 5.4 H, Baso % (Auto) 0.6, Absolute Neuts (auto) 5.6, Absolute Lymphs (auto) 2.53, Nucleated RBC % 0, Sodium 138, Potassium 3.8, Chloride 105, Carbon Dioxide 27.0, Anion Gap 6, BUN 20 H, Creatinine 0.88, Estim Creat Clear Calc 61.46, Est GFR (MDRD) Af Amer 105, Est GFR (MDRD) Non-Af 87, BUN/Creatinine Ratio 22.7 H, Glucose 174 H, Hemoglobin A1c 7.6 H, Calcium 8.9 06/07/23 21:41: POC Glucose 228 H 06/08/23 03:32: POC Glucose 144 H 06/08/23 06:06: WBC 7.5, RBC 4.04 L, Hgb 12.3 L, Hct 37.0 L, MCV 91.6, MCH 30.4, MCHC 33.2, RDW Std Deviation 45.8 H, RDW Coeff of Gm 13.5, Plt Count 178, MPV 9.8, Immature Gran % (Auto) 0.300, Neut % (Auto) 61.7, Lymph % (Auto) 21.2, Hale % (Auto) 9.9, Eos % (Auto) 6.0 H, Baso % (Auto) 0.9, Absolute Neuts (auto) 4.6, Absolute Lymphs (auto) 1.58, Nucleated RBC % 0, PT 13.9, INR 1.1, Sodium 139, Potassium 3.7, Chloride 106, Carbon Dioxide 28.0, Anion Gap 5, BUN 15, Creatinine 0.76, Estim Creat Clear Calc 67.20, Est GFR (MDRD) Af Amer 124, Est GFR (MDRD) Non-Af 103, BUN/Creatinine Ratio 19.6, Glucose 160 H, Calcium 8.6, Phosphorus 2.7, Magnesium 1.7, Total Bilirubin 0.70, Direct Bilirubin 0.23, AST 23, ALT 23, Alkaline Phosphatase 55, Total Protein 6.2 L, Albumin 2.8 L, Globulin 3.4, Albumin/Globulin Ratio 0.8 L, TSH 2.73 06/08/23 06:08: POC Glucose 153 H 06/08/23 11:30: POC Glucose 303 H Microbiology: Microbiology 06/07/23 17:49 Wound Abcess - Left Foot Gram Stain - Final 06/07/23 17:49 Wound Abcess - Left Foot Wound Culture - Preliminary Staphylococcus aureus Radiography Diagnostic Testing: Radiology Impression Foot X-Ray 06/07/23 17:50 IMPRESSION: 1. There are at least 2 curvilinear metallic foreign bodies in the plantar aspect of the foot localized to the interspace between the fourth and fifth digits as well as at the plantar aspect near the first and second metatarsal heads. 2. Mild diffuse soft tissue swelling. 3. Degenerative changes. Electronically Signed: Anand Marquis DO at 18:11 EDT , D/C Instructions Discharge Diet: - (Resume previous diet) Weight Bearing Status: Full weight bearing (Wear shoes) Meaningful Use Info Meaningful Use Diagnoses (Choose all that apply): None applicable Discharge Plan Admission Admit Date/Time: 06/07/23 18:33 Primary Reason for Your Visit: Cellulitis right foot Attending Provider: Todd Westfall Primary Care Provider: Bebe Gandhi Consulting Providers: Jacinta Adam Instructions Additional Instructions / Restrictions: Leave your dressing on until you see podiatry, if your dressing gets wet, you may clean your foot with soap and water and apply a clean dressing Discharge Orders/Prescriptions Prescriptions: New doxycycline hyclate 100 mg tablet 100 mg PO BID Qty: 14 0RF Rx Instructions: start tonite, take with food-no milk at same time Continued latanoprost 0.005 % drops 1 drp ophthalmic (eye) QHS metoprolol succinate 50 mg tablet extended release 24 hr 50 mg PO DAILY clopidogrel 75 mg tablet 75 mg PO DAILY metformin 1,000 mg tablet 1,000 mg PO BID lisinopril 10 mg tablet 10 mg PO DAILY rosuvastatin 20 mg tablet 20 mg PO DAILY aspirin [Adult Aspirin Regimen] 81 mg tablet,delayed release (DR/EC) 81 mg PO DAILY Referrals / Follow Up: Basilio Abdul DPM [Med Staff - Active Staff] - See Referral Note (This Fri or Friday, call tomorrow for an appointment) Bebe Gandhi MD [Primary Care Provider] - Disposition Disposition (needs filled in before D/C Order can be placed): Home, Self Care Charges/Coding Visit Charges Inpatient E&M: 57344 Disch Hosp >30min
[2023-06-08 14:30] VITALS: BP 141/76; PULSE 73; RESP 18; TEMP 37.4; O2SAT 92
== END 2023-06-08 14:37 | disposition home or self-care (01) | DRG 603 ==
LOC: ED 18:15 → MS3 18:46
PROVIDERS: Physician Assistant; Admitting Provider Internal Medicine; Emergency Provider Emergency Medicine; PCP Internal Medicine; Visit Provider Internal Medicine
DX: L03.115 Cellulitis of right lower limb (principal); E11.42 Type 2 diabetes mellitus with diabetic polyneuropathy; I10 Essential (primary) hypertension; E78.5 Hyperlipidemia, unspecified; B95.62 Methicillin resistant Staphylococcus aureus infection as the cause of diseases classified elsewhere; I25.10 Atherosclerotic heart disease of native coronary artery without angina pectoris; S90.851A Superficial foreign body, right foot, initial encounter; Z79.82 Long term (current) use of aspirin; Z79.84 Long term (current) use of oral hypoglycemic drugs; Z79.02 Long term (current) use of antithrombotics/antiplatelets; Z86.39 Personal history of other endocrine, nutritional and metabolic disease
CPT/HCPCS: 36415; 73630; 80048; 80053; 80076; 82962; 83036; 83735; 84100; 84443; 85025; 85610; 87070; 87077; 87186; 87205; 99284; J7040; J7050; A4216

== ENCOUNTER → 2023-07-30 | Outpatient (CLI) | payer MEDICARE, OTHER, SELFPAY | END | disposition home or self-care (01) | LOC: LABSPEC 17:22 | PROVIDERS: PCP Internal Medicine; Visit Provider Podiatrist | DX: L97.222 Non-pressure chronic ulcer of left calf with fat layer exposed (principal) | CPT/HCPCS: 87070; 87075; 87077; 87186; 87205 ==

== ENCOUNTER 2023-11-15 18:27 | Emergency (ER) | payer MEDICARE, OTHER, SELFPAY ==
[2023-11-15 18:28] VITALS: BP 125/87; PULSE 79; RESP 18; TEMP 36.1; O2SAT 95; BMI 26.4
--- NOTE | 2023-11-15 19:12 | CT_ITS ---
EXAM: CT HEAD WITHOUT INTRAVENOUS CONTRAST CLINICAL INDICATION: Head injury pain. TECHNIQUE: Multiple axial images were obtained of the head without intravenous contrast. This CT exam was performed using one or more of the following dose reduction techniques: automated exposure control, adjustment of the mA and/or kV according to patient size, and/or use of iterative reconstruction technique. COMPARISON: No relevant prior studies available. FINDINGS: BRAIN AND EXTRA-AXIAL SPACES: There is non-specific periventricular hypoattenuation which is most commonly related to chronic microvascular ischemic disease in a patient of this age. There is no mass, mass-effect, or shift of the midline structures. No evidence of acute infarct or acute intracranial hemorrhage. There is no evidence of pathologic extra-axial fluid. There is no hydrocephalus. Patent basal cisterns. BONES/JOINTS: No significant abnormality. No discrete lytic or blastic abnormalities. VASCULATURE: Arteriosclerosis. SINUSES: No significant findings. MASTOID AIR CELLS: No significant effusion. ORBITS: No acute findings. CT/Brain/Head without Contrast IMPRESSION: Chronic microvascular ischemic changes. No CT evidence of acute intracranial pathology. Electronically Signed: Anand Marquis DO at 20:15 EDT ,
--- NOTE | 2023-11-15 19:12 | EDS_ITS ---
HPI HPI - Fall History of Present Illness Chief Complaint: Fall Informant: patient Occured/Mechanism Occurred: Today Mechanism/Context: Yes same level fall Pain/Injury Pain Location: head and face Worsened by: Nothing Relieved by: Nothing Associated Symptoms Associated Symptoms: Negative for Parasthesias, Weakness, Loss of function, Inability to ambulate, Loss of consciousness or Amnesia Narrative Narrative: Patient presents after a fall that occurred this morning. Patient states he got up to use the restroom earlier this morning. Patient states he lost his balance and fell forward. Patient denies any loss of consciousness. Patient noted some increased bruising around his eyes as the day progressed. Patient states he did have some tingling over his thumbs bilaterally. Patient states this has resolved. Patient states he had blurred vision out of his right eye. Patient states this is also improving. Patient admits to superficial abrasion over his nose. Patient denies any other injuries. [facility] Medical History (Updated 11/15/23 @ 20:[address] Greg Sebastian, ) FH: cholecystectomy FH: total knee replacement Heart attack High blood pressure Macular degeneration of both eyes Cellulitis of foot, right Home Medications ?Medication ?Instructions ?Recorded ?Last Taken ?Type aspirin 81 mg tablet,delayed 81 mg PO DAILY 06/07/23 06/07/23 History release (Adult Aspirin Regimen) clopidogrel 75 mg tablet 75 mg PO DAILY 06/07/23 06/07/23 History latanoprost 0.005 % eye drops 1 drp ophthalmic (eye) QHS 06/07/23 06/06/23 History lisinopril 10 mg tablet 10 mg PO DAILY 06/07/23 06/07/23 History metformin 1,000 mg tablet 1,000 mg PO BID 06/07/23 06/07/23 History metoprolol succinate 50 mg 50 mg PO DAILY 06/07/23 06/06/23 History tablet,extended release 24 hr rosuvastatin 20 mg tablet 20 mg PO DAILY 06/07/23 06/06/23 History nitroglycerin 0.4 mg sublingual 0.4 mg sublingual Q5M PRN chest 11/15/23 Unknown History tablet pain Allergy/AdvReac Type Severity Reaction Status Date / Time metronidazole (From Flagyl) Allergy Rash Verified 11/15/23 18:27 Surgical History (Updated 11/15/23 @ 19:[address] Greg Sebastian DO) Hx of cholecystectomy Stented coronary artery Knee joint replacement status Social History Smoking Status: Never smoker ROS ROS ED Constitutional Constitutional ED: Denies chills or fever(s) Eyes Eyes: Reports blurry vision right; Denies change in vision ENT ENT ED: Denies rhinorrhea or sore throat Cardiovascular Cardiovascular: Denies chest pain or palpitations Respiratory/Chest Respiratory/Chest: Denies cough or dyspnea Gastrointestinal Gastrointestinal: Denies nausea or vomiting Genitourinary Genitourinary ED: Denies dysuria or hematuria Musculoskeletal Musculoskeletal: Denies back pain or neck pain Integumentary Denies abscess or rash Neurologic Neurologic: Denies headache(s) or weakness Allergic/Immunologic Allergic/Immunologic ED: Denies mouth swelling or urticaria EXAM Physical Exam Const Vital Signs: 11/15/23 18:28 11/15/23 18:55 11/15/23 18:55 Temperature 96.9 F L Temperature Source Temporal Pulse Rate 79 Respiratory Rate 18 Respiratory Effort Normal Non-Labored Normal Non-Labored Respiratory Depth Normal Normal Respiratory Pattern Normal Normal Blood Pressure 125/87 H Blood Pressure Mean 99 Pulse Ox 95 Oxygen Delivery Method Room Air Room Air Room Air Positive well nourished and well developed General Appearance ED: well developed and NAD HEENT HEENT Narrative: There is bilateral periorbital ecchymosis. There is no bony crepitance or step- off noted. There is a superficial abrasion over the bridge of the nose. There is no active bleeding noted. There is no tenderness. There is no epistaxis noted. Eyes PERRL and EOMs intact bilaterally Neck full ROM and supple Resp normal respiratory effort and clear to auscultation bilaterally Cardio regular rate and regular rhythm GI non-tender and non-distended Palpation: soft Neuro oriented x3, CN's II-XII intact bilaterally, moves all extremities, no focal motor deficits and no sensory deficits noted [place] Coma Scale: document GCS findings Spontaneous Obeys Commands Oriented 15 Sensorium / Orientation: alert Motor Exam: strength 5/5 throughout Psych mental status grossly normal and thought process normal MDM MDM MDM Narrative Medical decision making narrative: Differential diagnosis includes intracranial bleeding and closed head injury. CT scan of the brain will be obtained to assess for intracranial bleeding. Radiography Diagnostic Testing: Clinical Impression(s) from Imaging Studies Brain CT 11/15/23 19:12 IMPRESSION: Chronic microvascular ischemic changes. No CT evidence of acute intracranial pathology. Electronically Signed: Anand Verdin MemoDO ming at 20:15 EDT , CT scan of the brain was obtained. There is no acute intracranial abnormality. There are chronic microvascular ischemic changes. This was interpreted by the radiologist and was also independently reviewed by myself. Discharge Plan Triage Chief Complaint: Fall ED Provider: Greg Sebastian Dx/Rx/DC Orders Clinical Impression: Closed head injury, Fall Instructions: ED Head Injury (Adult) Prescriptions: No Action latanoprost 0.005 % drops 1 drp ophthalmic (eye) QHS metoprolol succinate 50 mg tablet extended release 24 hr 50 mg PO DAILY clopidogrel 75 mg tablet 75 mg PO DAILY metformin 1,000 mg tablet 1,000 mg PO BID lisinopril 10 mg tablet 10 mg PO DAILY rosuvastatin 20 mg tablet 20 mg PO DAILY aspirin [Adult Aspirin Regimen] 81 mg tablet,delayed release (DR/EC) 81 mg PO DAILY nitroglycerin 0.4 mg tablet, sublingual 0.4 mg sublingual Q5M PRN (Reason: chest pain) Patient Comments: PLEASE SEE ATTACHED FOR DETAILED DIRECTIONS Primary Care Provider: Bebe Gandhi Referrals: Bebe Gandhi MD [Primary Care Provider] - 5-7 Days Print Language: Malay Disposition Disposition: Home, Self Care
[2023-11-15 20:27] VITALS: PULSE 65; RESP 15; O2SAT 97
[2023-11-15 20:37] VITALS: BP 110/95; PULSE 81; RESP 16; TEMP 36.4; O2SAT 96
== END 2023-11-15 20:38 | disposition home or self-care (01) ==
PROVIDERS: Emergency Provider Emergency Medicine; PCP Internal Medicine; Visit Provider Emergency Medicine
DX: S09.90XA Unspecified injury of head, initial encounter (principal); W18.39XA Other fall on same level, initial encounter; Z90.49 Acquired absence of other specified parts of digestive tract; Z96.659 Presence of unspecified artificial knee joint; I10 Essential (primary) hypertension; Z79.82 Long term (current) use of aspirin; I25.2 Old myocardial infarction; Z79.02 Long term (current) use of antithrombotics/antiplatelets; Z79.899 Other long term (current) drug therapy; Z95.5 Presence of coronary angioplasty implant and graft
CPT/HCPCS: 70450; 99283

== ENCOUNTER 2024-07-18 15:29 | Emergency (ER) | payer MEDICARE, OTHER, SELFPAY ==
[2024-07-18 15:30] VITALS: BP 162/100; PULSE 83; RESP 18; TEMP 36.6; O2SAT 96; BMI 23.6
--- NOTE | 2024-07-18 15:44 | CT_ITS ---
PROCEDURE: BRAIN/HEAD WITHOUT CONTRAST 07/18/2024 REASON FOR EXAM: INJURY/PAIN TECHNIQUE: Head CT without intravenous contrast. Coronal and Sagittal reconstruction series were provided. One or more dose reduction techniques were used (e.g., Automated exposure control, adjustment of the mA and/or kV according to patient size, use of iterative reconstruction technique. FINDINGS: Brain: Low density in the periventricular white matter suggests mild chronic small vessel ischemic changes. CSF Spaces: Mild generalized cerebral atrophy Sinuses/Mastoids: Opacification of the left maxillary sinus possibly from sinusitis or hemorrhage. Bones: Unremarkable. CT/Brain/Head without Contrast IMPRESSION: NO ACUTE INTRACRANIAL HEMORRHAGE Left maxillary sinusitis or hemorrhage. Face CT may be useful. Reading Location: [id number]
--- NOTE | 2024-07-18 15:45 | EX.ED.GENINJ ---
HPI History of Present Illness Chief Complaint: Fall Detail of Chief Complaint: Mechanical fall Informant: patient and family Onset/Context/Timing Onset: Hours Mechanism/Context: Fall Location of pain/injuries: Left shoulder and - (Left side of face and confucianist area) Quality of Pain: Dull and Aching Location: Head/face and left shoulder region Current Severity: Mild Maximum Severity: Moderate Worsened by: Palpation of the shoulder and movement Relieved by: Nothing Associated Symptoms Associated Symptoms: Negative for Parasthesias, Weakness, Loss of function, Inability to ambulate, Loss of consciousness or Amnesia Narrative Narrative: Patient is an 89-year-old male. He was walking out of [employer] with [employer]. He tripped. He struck predominately on the left side. He complains of left shoulder pain. He also has evidence of ecchymosis with swelling of the left periorbital area and over the left temporal region. He denies weaver ears decreased hearing. Denies dental pain. [place] neck pain. He denies paresthesia, anesthesia Medicus. He denies chest or pain or shortness of breath. He denies any injury to the lower extremity. Patient is on Plavix as well as aspirin. Prior similar symptoms: No Recent Illness/Hospitalization: No [facility] Medical History FH: cholecystectomy FH: total knee replacement Heart attack High blood pressure Macular degeneration of both eyes Cellulitis of foot, right Home Medications ?Medication ?Instructions ?Recorded ?Last Taken ?Type aspirin 81 mg tablet,delayed 81 mg PO DAILY 06/07/23 06/07/23 History release (Adult Aspirin Regimen) clopidogrel 75 mg tablet 75 mg PO DAILY 06/07/23 06/07/23 History latanoprost 0.005 % eye drops 1 drp ophthalmic (eye) QHS 06/07/23 06/06/23 History lisinopril 10 mg tablet 10 mg PO DAILY 06/07/23 06/07/23 History metformin 1,000 mg tablet 1,000 mg PO BID 06/07/23 06/07/23 History metoprolol succinate 50 mg 50 mg PO DAILY 06/07/23 06/06/23 History tablet,extended release 24 hr rosuvastatin 20 mg tablet 20 mg PO DAILY 06/07/23 06/06/23 History nitroglycerin 0.4 mg sublingual 0.4 mg sublingual Q5M PRN chest 11/15/23 Unknown History tablet pain Allergy/AdvReac Type Severity Reaction Status Date / Time metronidazole (From Flagyl) Allergy Rash Verified 07/18/24 15:30 Surgical History Hx of cholecystectomy Stented coronary artery Knee joint replacement status Social History Smoking Status: Never smoker ROS ROS ED Constitutional Constitutional ED: Denies fever(s), subjective or sweats Eyes Eyes: Denies blurry vision or change in vision ENT ENT ED: Reports other Details: Denies tinnitus or decreased hearing ; Denies ear pain, rhinorrhea or sore throat Cardiovascular Cardiovascular: Denies chest pain or palpitations Respiratory/Chest Respiratory/Chest: Denies cough, dyspnea or dyspnea on exertion Gastrointestinal Gastrointestinal: Denies abdominal pain, nausea or vomiting Musculoskeletal Musculoskeletal: Denies arthralgias, myalgias or neck pain Integumentary Reports Abrasions Neurologic Neurologic: Reports headache(s); Denies paresthesias or weakness Endocrine Endocrinology: Denies cold intolerance or heat intolerance Hematologic/Lymphatic Hematologic/Lymphatic: Reports easy bruising EXAM Physical Exam Const Vital Signs: 07/18/24 15:30 07/18/24 15:49 Temperature 97.9 F Temperature Source Temporal Pulse Rate 83 Respiratory Rate 18 Respiratory Effort Normal Non-Labored Respiratory Depth Normal Respiratory Pattern Normal Blood Pressure 162/100 H Blood Pressure Mean 120 Pulse Ox 96 Oxygen Delivery Method Room Air Positive well nourished and well developed General Appearance ED: well developed and NAD HEENT HEENT Narrative: There is pain ovation of the left temporal area as well as inferior to the left orbit. There is no step-off with palpation in the orbital rim. There is no hyperesthesia infraorbital nerve. There is no evidence of entrapment and he denies diplopia. He has a small subconjunctival hemorrhage temporal side on the right. This is due to recent surgery for macular degeneration per patient and daughter. Ears are normal. There is no clinical findings of basilar skull fracture. trauma; Negative for atraumatic or tenderness Nose: Negative for septum abnormal Eyes PERRL and EOMs intact bilaterally General Eye ED: Yes other Other Details: Noted under the HEENT portion of the EMR Neck full ROM General: Negative for tenderness Chest Wall inspection of chest normal Resp normal respiratory effort and clear to auscultation bilaterally Cardio regular rhythm, S1 normal heart sound, S2 normal heart sound and no murmurs Rate: regular rate GI normal to inspection, nondistended, normoactive bowel sounds, non-tender, non-distended and no masses Extremity normal to inspection and full ROM Extremity Narrative: Pain with movement of the left shoulder. Axillary, median, radial and ulnar function intact. There is no pain ovation of the clavicle or AC joint. There is pain ovation of the proximal humerus. There is no pain ovation of the lateral medial epicondyle, olecranon process or radial head. There is no pain to palpation over the distal radius or ulna, carpal bones, metacarpal bones. There is no pain to palpation over the phalanges of the left hand. Neuro oriented x3, CN's II-XII intact bilaterally, moves all extremities, no focal motor deficits, no sensory deficits noted and gait normal [place] Coma Scale: document GCS findings Spontaneous Obeys Commands Oriented 15 Deep Tendon Reflexes: Rt Triceps (C7): 2+, Lt Triceps (C7): 2+, Rt Biceps (C5, C6): 2+, Lt Biceps (C5, C6): 2+, Rt Brachioradialis (C6): 2+, Lt Brachioradialis (C6): 2+, Rt Patellar (L4): 2+, Lt Patellar (L4): 2+, Rt Ankle (S1): 2+ and Lt Ankle (S1): 2+ Deep Tendon Reflexes Back: Rt Patellar (L4): 2+, Lt Patellar (L4): 2+, Rt Ankle (S1): 2+ and Lt Ankle (S1): 2+ Plantar Reflex: Downgoing: bilateral (There is no clonus right or left.) Psych mental status grossly normal and thought process normal Skin no rashes or lesions noted, No no wounds, skin turgor normal and no jaundice Skin Narrative: Contusion abrasion left periorbital and left temporal region. MDM MDM MDM Narrative Medical decision making narrative: With history of fall, trauma to the left confucianist area complaining of headache and the fact that he is on Plavix and aspirin full obtain CT of the head rule out intracranial bleeding specifically subdural hematoma, epidural hematoma, traumatic subarachnoid hemorrhage or intraparenchymal contusion. Because of his pain ovation of the shoulder will obtain x-ray to evaluate for contusion versus fracture. History & Record Review Additional record(s) reviewed:: Prior inpatient record (He was admitted for foreign body foot with infection. The ED and inpatient note were reviewed. He was seen by podiatry at that time as well.) and Prior ED visit (Patient had ER visit October 2019 for and seen by Dr. Nails for closed head injury.) Radiography Chest X-Ray - ED: Read by ED Physician (4 views of the left shoulder were obtained. On the axillary view there is a avulsion fracture that appears acute. Will determine if patient is tender there.) Diagnostic Testing: Clinical Impression(s) from Imaging Studies Brain CT 07/18/24 15:44 IMPRESSION: NO ACUTE INTRACRANIAL HEMORRHAGE Left maxillary sinusitis or hemorrhage. Face CT may be useful. Reading Location: [id number] Shoulder X-Ray 07/18/24 16:10 IMPRESSION: NO ACUTE FRACTURE OR DISLOCATION. Reading Location: [id number] C-minus of the head reveals chronic left maxillary sinusitis. There is no other abnormality noted the sinuses. There is no evidence of fracture. There is no evidence of a subdural hematoma, epidural hematoma, traumatic subarachnoid hemorrhage or intraparenchymal bleed. This was reviewed by me at 1614. Awaiting formal read by radiologist Treatment and Re-Evaluation Narrative: Patient was reexamined. Where the calcification is noted there is no tenderness. Suspect this is old. Patient has full active range of motion. He has a negative drop test. Discharge Plan Triage Chief Complaint: Fall ED Provider: Mo Gamboa Dx/Rx/DC Orders Clinical Impression: Injury due to fall, Concussion without loss of consciousness, Contusion of face, Contusion of scalp, Abrasion of face, Contusion of left shoulder, Elevated blood pressure reading with diagnosis of hypertension Instructions: ED Abrasion, ED Concussion, ED Facial Contusion Prescriptions: No Action latanoprost 0.005 % drops 1 drp ophthalmic (eye) QHS metoprolol succinate 50 mg tablet extended release 24 hr 50 mg PO DAILY clopidogrel 75 mg tablet 75 mg PO DAILY metformin 1,000 mg tablet 1,000 mg PO BID lisinopril 10 mg tablet 10 mg PO DAILY rosuvastatin 20 mg tablet 20 mg PO DAILY aspirin [Adult Aspirin Regimen] 81 mg tablet,delayed release (DR/EC) 81 mg PO DAILY nitroglycerin 0.4 mg tablet, sublingual 0.4 mg sublingual Q5M PRN (Reason: chest pain) Patient Comments: PLEASE SEE ATTACHED FOR DETAILED DIRECTIONS Primary Care Provider: Bebe Gandhi Referrals: Bebe Gandhi MD [Primary Care Provider] - 1 Week if not improving Activity Restrictions/Additional Instructions: 1. Apply ice to your left side of your face and left shoulder 6-8 times a day 2. You will feel worse over the next 24 to 48 hours. 3. You will hurt more places and you presently do 4. You may hurt for several days if not greater than 1 week Print Language: Prydeinig Disposition Disposition: Home, Self Care
--- NOTE | 2024-07-18 16:10 | RAD_ITS ---
PROCEDURE: SHOULDER MIN 2 VIEWS 07/18/2024 REASON FOR EXAM: INJURY/PAIN TECHNIQUE: 3 view(s) of the left shoulder FINDINGS: Bones: No acute fracture. Joints: Normal alignment of the acromioclavicular and glenohumeral joints. Soft tissues: Soft tissues are unremarkable. Other: RAD/Shoulder min 2 Views IMPRESSION: NO ACUTE FRACTURE OR DISLOCATION. Reading Location: [id number]
[2024-07-18 17:24] VITALS: BP 188/90; PULSE 68; RESP 18; TEMP 36.7; O2SAT 92
== END 2024-07-18 17:27 | disposition home or self-care (01) ==
PROVIDERS: Emergency Provider Emergency Medicine; PCP Internal Medicine; Referring Provider Emergency Medicine; Visit Provider Emergency Medicine
DX: S06.0X0A Concussion without loss of consciousness, initial encounter (principal); S40.012A Contusion of left shoulder, initial encounter; W18.09XA Striking against other object with subsequent fall, initial encounter; Y93.01 Activity, walking, marching and hiking; Y92.512 Supermarket, store or market as the place of occurrence of the external cause; R03.0 Elevated blood-pressure reading, without diagnosis of hypertension; H35.30 Unspecified macular degeneration; Z79.02 Long term (current) use of antithrombotics/antiplatelets; Z79.82 Long term (current) use of aspirin; Z79.84 Long term (current) use of oral hypoglycemic drugs; Z79.899 Other long term (current) drug therapy
CPT/HCPCS: 70450; 73030; 99282